=== PATIENT | female | born 1955 | race Caucasian/White ===

== ENCOUNTER 2024-04-02 14:32 | Inpatient (IN) | payer BC, MEDICARE ==
[~2024-04-02] VITALS: Ht 157.5 cm; Wt 104.7 kg
[2024-04-02] MEDS ORDERED: PANT40TA29 PO (14:42)
[2024-04-02] MEDS ORDERED: METF-838 PO (14:42)
[2024-04-02] MEDS ORDERED: PROV10TA PO (14:42)
[2024-04-02] MEDS ORDERED: MONT10TA97 PO (14:42)
[2024-04-02] MEDS ORDERED: TRAM50TA2 PO (14:42)
[2024-04-02] MEDS ORDERED: ESTR1TAB PO (14:42)
[2024-04-02] MEDS ORDERED: QUET50TA4 PO (14:42)
[2024-04-02] MEDS ORDERED: DEXT15CA5 PO (14:42)
[2024-04-02] MEDS ORDERED: IRBE300T25 PO (14:42)
[2024-04-02 16:08] LABS: BASO % 0.3 % (0.0-1.0); EOS # 0.2 10^3/uL (0.0-0.5); HEMATOCRIT 22.3 % (36.0-47.0); LYMPH # 0.8 10^3/uL (1.5-5.0); LYMPH % 13.7 % (24.0-44.0); MEAN CORPUSCULAR HEMOGLOBIN 24.5 pg (27.0-33.0); MEAN CORPUSCULAR HGB CONC 30.5 g/dl (32.0-36.5); MEAN CORPUSCULAR VOLUME 80.2 fl (80.0-96.0); MONO # 0.6 10^3/uL (0.0-0.8); MONO % 10.5 % (2.0-8.0); NEUTROPHILS # 4.3 10^3/uL (1.5-8.5); NEUTROPHILS % 72.2 % (36.0-66.0); PLATELET COUNT, AUTOMATED 334 10^3/uL (150-450); RED BLOOD COUNT 2.78 10^6/uL (4.00-5.40)
[2024-04-02 16:19] LABS: BLOOD UREA NITROGEN 14 MG/DL (9-23); CALCIUM LEVEL 9.3 MG/DL (8.3-10.6); CARBON DIOXIDE LEVEL 26 MMOL/L (20-31); CHLORIDE LEVEL 107 MMOL/L (98-107); CREATININE FOR GFR 1.14 MG/DL (0.55-1.30); GLOMERULAR FILTRATION RATE 50.2 (>39); GLUCOSE, FASTING 126 MG/DL (74-106); POTASSIUM SERUM 5.2 MMOL/L (3.5-5.1); SODIUM LEVEL 139 MMOL/L (136-145)
[2024-04-02 16:20] LABS: CPK CREATINE PHOSPHOKINASE 112 U/L (34-145); MB/CK RELATIVE INDEX 1.78 (< OR =4)
[2024-04-02 16:27] LABS: HEMOGLOBIN 6.8 g/dl (12.0-15.5)
[2024-04-02] MEDS: PANTOPRAZOLE 40MG VIAL IV ONE (17:18)
[2024-04-02] MEDS: PANTOPRAZOLE SODIUM 40 MG in D5W 50 ML IV SCH (17:18)
[2024-04-02 17:24] LABS: IRON (FE) 13 UG/DL (50-170); PERCENT SATURATION 3.5 % (13.2-45.0); TOTAL IRON BINDING CAPACITY 373 UG/DL (250-425)
[2024-04-02 17:25] LABS: VITAMIN B12 LEVEL 1449 PG/ML (211-911)
[2024-04-02 17:26] LABS: FOLATE > 24.00 NG/ML (>5.4)
[2024-04-02] MEDS: PATIROMER SORBITEX CALCIUM 8.4 GM POWDER PACKET (VELTASSA) PO ONE (17:40)
[2024-04-02] MEDS ORDERED: GLUCAGON INJ 1MG VIAL SC PRN (17:45)
[2024-04-02] MEDS ORDERED: DEXTROSE 50% 50ML SYRINGE IV PRN (17:45)
[2024-04-02] MEDS ORDERED: GLUCOSE 4 GM CHEW PO PRN (17:45)
[2024-04-02 18:06] VITALS: BP 148/62; TEMP 99; O2SAT 99
[2024-04-02 18:21] VITALS: BP 171/72; TEMP 98.7; O2SAT 99
[2024-04-02 18:41] LABS: INR 1.13; PARTIAL THROMBOPLASTIN TIME 27.3 SECONDS (24.8-34.2); PROTHROMBIN TIME 14.1 SECONDS (12.5-14.5)
[2024-04-02] MEDS ORDERED: LEVALBUTEROL 1.25MG 0.5ML CONCENTRATE NEB INH PRN (19:30)
[2024-04-02] MEDS: CALCIUM GLUCONATE 1,000 MG in D5W MINI-BAG PLUS 100 ML IV ONE (20:10)
[2024-04-02] MEDS: ACETAMINOPHEN TAB 650MG DOSE (2X325MG) PO ONE (20:10)
[2024-04-02] MEDS ORDERED: RA M10TA PO (20:33)
[2024-04-02] MEDS ORDERED: GNP250TA9 PO (20:33)
[2024-04-02] MEDS ORDERED: LOPE2TAB12 PO (20:33)
[2024-04-02] MEDS ORDERED: ESTR0.5T3 PO (20:33)
[2024-04-02] MEDS ORDERED: MEDR1TAB2 PO (20:33)
[2024-04-02] MEDS ORDERED: HOME MED LIST COMPLETE! XX SCH (20:35)
[2024-04-02] MEDS ORDERED: QUEtiapine FUMERATE XR 50MG TABER PO SCH (21:00)
[2024-04-02] MEDS ORDERED: methylPREDNISolone 125MG 2ML VIAL IV SCH (21:05)
[2024-04-02] MEDS: METOPROLOL TART 25 MG TABLET PO SCH (21:17)
[2024-04-02 22:23] VITALS: BP 190/89; TEMP 98.5; O2SAT 98
[2024-04-02 22:55] VITALS: BP 141/61
[2024-04-02] MEDS: methylPREDNISolone 125MG 2ML VIAL IV SCH (22:57)
[2024-04-02 23:38] VITALS: BP 148/63; TEMP 98.9; O2SAT 98
[2024-04-02 23:53] VITALS: BP 133/68; TEMP 98.6; O2SAT 98
[2024-04-03] VITALS (23 sets, daily range): BP systolic 105–171; BP diastolic 59–78; TEMP 97.9–98.9; O2SAT 95–100
[2024-04-03 01:05] LABS: MB/CK RELATIVE INDEX 1.8 (< OR =4)
[2024-04-03] MEDS: QUEtiapine FUMARATE 25 MG TAB PO SCH (01:11)
[2024-04-03 03:20] LABS: HEMATOCRIT 29.4 % (36.0-47.0)
[2024-04-03 03:25] LABS: HEMOGLOBIN 9.4 g/dl (12.0-15.5)
[2024-04-03] MEDS: D5W/0.45% SODIUM CHLORIDE 1,000 ML IV SCH (05:30)
[2024-04-03 06:26] LABS: HEMATOCRIT 30.3 % (36.0-47.0); HEMOGLOBIN 9.6 g/dl (12.0-15.5)
[2024-04-03 06:47] LABS: HEMOGLOBIN A1c 6.5 % (4.0-6.0)
[2024-04-03 07:00] LABS: MB/CK RELATIVE INDEX 1.86 (< OR =4)
[2024-04-03 07:01] LABS: CHOLESTEROL RISK RATIO 3.73 (<5); CREATININE FOR GFR 1.12 MG/DL (0.55-1.30); GLOMERULAR FILTRATION RATE 51.2 (>39); HDL CHOLESTEROL 52.5 MG/DL (>40); LDL CHOLESTEROL 113.9 MG/DL (<100); NON-HDL-C 143.5 MG/DL; POTASSIUM SERUM 4.9 MMOL/L (3.5-5.1)
[2024-04-03 07:04] LABS: THYROID STIMULATING HORMONE 0.468 uIU/ML (0.55-4.78); THYROXINE (T4) 10.7 UG/DL (4.5-10.9)
[2024-04-03 07:06] LABS: FREE THYROXINE INDEX 4.1 % (1.3-4.8); T UPTAKE 37.9 % (22.5-37.0)
[2024-04-03] MEDS: SUCRALFATE SUSP 1GM/10ML UD PO SCH (07:30)
[2024-04-03] MEDS ORDERED: ISOVUE-370 76% 100ML VIAL As Ordered ONE (07:32)
[2024-04-03] MEDS ORDERED: diphenhydrAMINE 50MG/ML VIAL IV ONE (08:00)
[2024-04-03] MEDS: diphenhydrAMINE 50MG/ML VIAL IV ONE (08:09)
[2024-04-03] MEDS: ACETAMINOPHEN *IV* 1,000 MG in IV 1 EA IV ONE (08:22)
[2024-04-03] MEDS: MONTELUKAST 10 MG TAB PO SCH (09:00)
[2024-04-03] MEDS: OMEPRAZOLE 20MG CAP PO SCH (09:00)
[2024-04-03] MEDS: CETACAINE SPRAY 5GM As Ordered ONE (12:23)
[2024-04-03 12:45] LABS: HEMATOCRIT 30.8 % (36.0-47.0); HEMOGLOBIN 9.8 g/dl (12.0-15.5)
[2024-04-03 13:03] LABS: CK-MB VALUE MASS 2.6 NG/ML (<3.6)
[2024-04-03 13:04] LABS: MB/CK RELATIVE INDEX 1.84 (< OR =4)
[2024-04-03] MEDS: amLODIPine 5 MG TAB PO SCH (16:51)
[2024-04-03] MEDS: ACETAMINOPHEN 500 MG TAB PO ONE (17:29)
[2024-04-03] MEDS: traMADol 50 MG TAB PO ONE (17:30)
[2024-04-03] MEDS ORDERED: SUCR1ORA PO (17:30)
[2024-04-03] MEDS ORDERED: PANT40TA29 PO (17:30)
[2024-04-03 19:17] LABS: HEMATOCRIT 29.7 % (36.0-47.0); HEMOGLOBIN 9.3 g/dl (12.0-15.5)
[2024-04-03] MEDS: PANTOPRAZOLE 40MG TAB (PROTONIX) PO SCH (20:17)
[2024-04-03 20:43] LABS: INR 1.16; PARTIAL THROMBOPLASTIN TIME 26.7 SECONDS (24.8-34.2); PROTHROMBIN TIME 14.5 SECONDS (12.5-14.5)
[2024-04-03] MEDS: traMADol 50 MG TAB PO PRN (22:38)
[2024-04-04] VITALS (20 sets, daily range): BP systolic 104–156; BP diastolic 50–70; TEMP 97.3–98.5; O2SAT 95–99
[2024-04-04] MEDS ORDERED: UNRESOLVED PATIENT OWN MED ORDER XX SCH (00:01)
[2024-04-04 00:09] LABS: HEMOGLOBIN 8.6 g/dl (12.0-15.5)
[2024-04-04 06:05] LABS: HEMATOCRIT 27.7 % (36.0-47.0); HEMOGLOBIN 8.7 g/dl (12.0-15.5)
[2024-04-04 06:46] LABS: CALCIUM LEVEL 8.8 MG/DL (8.3-10.6); CREATININE FOR GFR 1.18 MG/DL (0.55-1.30); GLOMERULAR FILTRATION RATE 48.2 (>39); POTASSIUM SERUM 4.5 MMOL/L (3.5-5.1)
[2024-04-04] MEDS ORDERED: DEXTROAMPHETAMINE 15 MG PO SCH (09:00)
[2024-04-04] MEDS ORDERED: METO1TAB87 PO (14:51)
[2024-04-04] MEDS ORDERED: INSUDET SC (14:51)
[2024-04-04] MEDS ORDERED: AMLO1TAB24 PO (14:51)
[2024-04-04] MEDS: INSULIN LISPRO (NovoLOG) PER UNIT SC SCH (18:21)
[2024-04-04] MEDS ORDERED: LEVEMIR (INSULIN DETEMIR) 1 UNITS/0.01ML SC SCH (21:00)
[2024-04-04] MEDS ORDERED: INSULIN LISPRO (NovoLOG) PER UNIT SC SCH (21:00)
== END 2024-04-04 19:07 | disposition short-term general hospital (02) | DRG 253 ==
LOC: M ED 14:32 → M ED INP 17:31 → M PCU 22:24
PROVIDERS: ADMIT General Practice; ATTEND General Practice
PROC: 30233N1 Transfusion of Nonautologous Red Blood Cells into Peripheral Vein, Percutaneous Approach (ICD-10-PCS; principal; 2024-04-02)
DX: K92.2 Gastrointestinal hemorrhage, unspecified (principal); I26.99 Other pulmonary embolism without acute cor pulmonale; Z68.41 Body mass index [BMI] 40.0-44.9, adult; D50.0 Iron deficiency anemia secondary to blood loss (chronic); E11.9 Type 2 diabetes mellitus without complications; I10 Essential (primary) hypertension; E87.5 Hyperkalemia; I48.0 Paroxysmal atrial fibrillation; E66.01 Morbid (severe) obesity due to excess calories; I35.0 Nonrheumatic aortic (valve) stenosis; J45.909 Unspecified asthma, uncomplicated; K21.9 Gastro-esophageal reflux disease without esophagitis; G47.33 Obstructive sleep apnea (adult) (pediatric); M19.90 Unspecified osteoarthritis, unspecified site; E78.5 Hyperlipidemia, unspecified; R29.6 Repeated falls; J30.81 Allergic rhinitis due to animal (cat) (dog) hair and dander; Z88.2 Allergy status to sulfonamides; Z88.5 Allergy status to narcotic agent; Z88.8 Allergy status to other drugs, medicaments and biological substances; Z79.899 Other long term (current) drug therapy; Z79.4 Long term (current) use of insulin; Z91.041 Radiographic dye allergy status

== ENCOUNTER → 2024-12-22 | Outpatient (REF) | payer MEDICARE, BC ==
[~2024-12-22] MED LIST: AMLO1TAB24 PO; DEXT15CA5 PO; ESTR0.5T3 PO; ESTR1TAB PO; GNP250TA9 PO; INSUDET SC; IRBE300T25 PO; LOPE2TAB12 PO; MEDR1TAB2 PO; METF-838 PO; METO1TAB87 PO; MONT10TA97 PO; PANT40TA29 PO; PROV10TA PO; QUET50TA4 PO; RA M10TA PO; SUCR1ORA PO; TRAM50TA2 PO
== END ==
LOC: M LAB REF 16:14
PROVIDERS: ATTEND Nurse Practitioner Family
DX: R06.02 Shortness of breath (principal)

== ENCOUNTER → 2024-12-25 | Outpatient (CLI) | payer MEDICARE, BC ==
[~2024-12-25] MED LIST changes: +ISOVUE-370 76% 100ML VIAL As Ordered ONE
== END ==
LOC: M RAD 12-24 06:51
PROVIDERS: ATTEND Nurse Practitioner Family
DX: I26.99 Other pulmonary embolism without acute cor pulmonale (principal); R06.02 Shortness of breath
CPT/HCPCS: 71275; Q9967

== ENCOUNTER → 2025-04-09 | Outpatient (CLI) | payer MEDICARE, BC ==
[~2025-04-09] MED LIST changes: -ISOVUE-370 76% 100ML VIAL As Ordered ONE
== END ==
LOC: M RAD 14:24
PROVIDERS: ATTEND Nurse Practitioner Family
DX: R59.0 Localized enlarged lymph nodes (principal)

== ENCOUNTER → 2025-06-29 | Outpatient (REF) | payer MEDICARE, BC | LOC: M LAB REF 18:20 | PROVIDERS: ATTEND Nurse Practitioner Family | DX: D51.9 Vitamin B12 deficiency anemia, unspecified (principal) ==